=== PATIENT | female | born 1965 | race Two or more races ===

== ENCOUNTER 2020-12-04 10:25 | Emergency (ER) | payer SELFPAY ==
[~2020-12-04] VITALS: Ht 165.1 cm; Wt 68.0 kg
[~2020-12-04 10:25] MED LIST: HYDR25TA PO; ONDA4TAB10 SL
[2020-12-04 11:38] VITALS: BP 133/65
[2020-12-04] MEDS ORDERED: AMOXICILLIN/K CLAV 875/125MG TABLET. PO ONE (12:00)
[2020-12-04] MEDS ORDERED: predniSONE 20 MG TABLET PO ONE (12:00)
[2020-12-04] MEDS ORDERED: LIDOCAINE 2% VISCOUS 15 ML SOLUTION. SWSW ONE (12:00)
[2020-12-04] MEDS ORDERED: PRED50TA PO (12:04)
[2020-12-04] MEDS ORDERED: AMOX875T PO (12:04)
--- NOTE | 2020-12-04 12:04 | PHYS DOC ---
Past Medical History Past Medical History: Anxiety, GERD Past Surgical History: Cholecystectomy Smoking Status: Current Every Day Smoker Alcohol Use: None Drug Use: None General Adult EDM: Chief Complaint: EARACHE/EAR PAIN HPI: HPI: Patient is a 55 year old female who presents the ED today complaining of sore throat and bilateral ear pain, symptoms for 5 days. Patient states she has tried [id number] remedies including honey, lemon with no relief. Rates the pain as mild and intermittent worse on swallowing. Describes the pain as sharp. Denies any difficulty swallowing. Review of Systems: Review of Systems: Constitutional: Denies fever or chills. [] Eyes: Denies change in visual acuity. [] HENT: Reports sore throat and bilateral ear pain. Denies nasal congestion Respiratory: Denies cough or shortness of breath. [] Cardiovascular: Denies chest pain or edema. [] GI: Denies abdominal pain, nausea, vomiting, bloody stools or diarrhea. [] : Denies dysuria. [] Musculoskeletal: Denies back pain or joint pain. [] Integument: Denies rash. [] Neurologic: Denies headache, focal weakness or sensory changes. [] Psychiatric: Denies depression or anxiety. [] Heart Score: C/O Chest Pain: N/A Risk Factors: Risk Factors: DM, Current or recent (<one month) smoker, HTN, HLP, family history of CAD, obesity. Risk Scores: Score 0 - 3: 2.5% MACE over next 6 weeks - Discharge Home Score 4 - 6: 20.3% MACE over next 6 weeks - Admit for Clinical Observation Score 7 - 10: 72.7% MACE over next 6 weeks - Early Invasive Strategies Allergies: Allergies: Allergies Coded Allergies Type Severity Reaction Last Updated Verified No Known Drug Allergies 04/26/17 No Physical Exam: PE: Constitutional: Well developed, well nourished, no acute distress, non-toxic appearance. [] HENT: Normocephalic, atraumatic, bilateral external ears normal, oropharynx moist, no oral exudates, nose normal. [] Midline uvula, +2 tonsils with mild erythema and no exudate +2 anterior cervical adenopathy Bilateral TM are mildly injected left worse than right Eyes: PERRLA, EOMI, conjunctiva normal, no discharge. [] Neck: Normal range of motion, no tenderness, supple, no stridor. [] Cardiovascular:Heart rate regular rhythm, no murmur [] Lungs & Thorax: Bilateral breath sounds clear to auscultation [] Abdomen: Bowel sounds normal, soft, no tenderness, no masses, no pulsatile masses. [] Skin: Warm, dry, no erythema, no rash. [] Back: No tenderness, no CVA tenderness. [] Extremities: No tenderness, no cyanosis, no clubbing, ROM intact, no edema. [] Neurologic: Alert and oriented X 3, normal motor function, normal sensory function, no focal deficits noted. [] Psychologic: Affect normal, judgement normal, mood normal. [] Current Patient Data: Vital Signs: Vital Signs Date Time Temp Pulse Resp B/P (MAP) Pulse Ox O2 Delivery O2 Flow Rate FiO2 12/04/20 11:38 98.5 84 16 133/65 (87) 98 Room Air 98.5 EKG: EKG: [] Radiology/Procedures: Radiology/Procedures: [] Course & Med Decision Making: Course & Med Decision Making Pertinent Labs and Imaging studies reviewed. (See chart for details) This is a 55-year-old female patient presenting to the ED today with otitis media and acute tonsillitis. Patient is afebrile. Airway is open. Discharged with prednisone, lidocaine viscous and amoxicillin. Tylenol/Motrin for pain or fever. Follow-up with ENT or primary care doctor in 1 to 2 weeks. Provided return precautions and discharged in stable condition [place] Disclaimer: Cass Disclaimer: This electronic medical record was generated, in whole or in part, using a voice recognition dictation system. Departure Departure Impression: Primary Impression: Otitis media Qualified Codes: H65.193 - Other acute nonsuppurative otitis media, bilateral Additional Impression: Acute tonsillitis Qualified Codes: J03.90 - Acute tonsillitis, unspecified Disposition: HOME / SELF CARE / HOMELESS Condition: STABLE Referrals: NO PCP (PCP) LISSET FLANAGAN MD follow up in 1-2 weeks Patient Instructions: Otitis Media, Adult, Tonsillitis Additional Instructions: You have ear infection and throat infection. Take the prescribed medications as ordered, ensure you complete your antibiotics. Follow-up with the primary care doctor or ENT in 1 to 2 weeks if symptoms persist Scripts Prednisone (PREDNISONE) 50 Mg Tablet 1 TAB PO DAILY, #5 TAB Prov: MUTUNGA,AMADEO M [employer] 12/04/20 Amoxicillin (AMOXICILLIN) 875 Mg Tablet 1 TAB PO BID, #20 TAB Prov: AMADEO MEEK APRN 12/04/20 AMADEO MEEK APRN Dec 04, 2020 12:04
== END 2020-12-04 13:09 | disposition home or self-care (01) ==
LOC: ER 10:25
DX: H65.193 Other acute nonsuppurative otitis media, bilateral (principal); J03.90 Acute tonsillitis, unspecified; F41.9 Anxiety disorder, unspecified; K21.9 Gastro-esophageal reflux disease without esophagitis; F17.200 Nicotine dependence, unspecified, uncomplicated; Z90.49 Acquired absence of other specified parts of digestive tract
CPT/HCPCS: 99284; J7512